=== PATIENT | male | born 2000 | race Hispanic/Latino ===

== ENCOUNTER 2024-12-14 07:00 | Emergency (ER) | payer BC ==
[2024-12-14] MEDS ORDERED: diphenhydrAMINE 25 MG CAP ONE (07:10)
[2024-12-14] MEDS ORDERED: predniSONE 20 MG TAB ONE (07:10)
[2024-12-14] MEDS ORDERED: Famotidine 20 MG TAB ONE (07:10)
== END 2024-12-14 07:40 | disposition home or self-care (01) ==
LOC: ERS 07:00
DX: T63.461A Toxic effect of venom of wasps, accidental (unintentional), initial encounter (principal)
CPT/HCPCS: 99282; J7512